=== PATIENT | female | born 1975 | race Caucasian/White ===

== ENCOUNTER 2018-07-08 20:10 | Emergency (ER) | payer BC ==
[~2018-07-08] VITALS: Ht 172.7 cm; Wt 61.4 kg
[2018-07-08 20:14] VITALS: BP 121/72; PULSE 69; TEMP 98
== END 2018-07-08 21:24 | disposition home or self-care (01) ==
LOC: COL.ER 20:10
DX: S81.011A Laceration without foreign body, right knee, initial encounter (principal); Z23 Encounter for immunization; W19.XXXA Unspecified fall, initial encounter; Y92.009 Unspecified place in unspecified non-institutional (private) residence as the place of occurrence of the external cause